=== PATIENT | female | born 1960 | race Caucasian/White ===

== ENCOUNTER 2016-10-03 08:30 | Inpatient (IN) | payer OTHER ==
[2016-10-03] VITALS (15 sets, daily range): BP systolic 104–144; BP diastolic 64–98; PULSE 68–96; RESP 10–20; O2SAT 91–100
[~2016-10-03] VITALS: Ht 154.9 cm; Wt 90.3 kg
[2016-10-03] MEDS: Lactated Ringer's 1,000 ML IV SCH ×3 (05:00→09:30)
[~2016-10-03 08:30] MED LIST: ARIP5TAB20 PO; ARIP5TAB5 PO; BUPR200T34 PO; CeFAZolin Inj 2 GM in Dextrose 5% 50 ML IV ONE; Glycopyrrolate 0.2 MG/ML 1mL Inj ONE; HYDROmorphone 2 mg/mL Inj ONE; LAMO200T PO; LIT450 PO; Neostigmine 1 mg/mL 10 mL Inj ONE; OMEG-38 PO; OMEP20TA24 PO; Ondansetron 2 mg/mL 2 mL Inj ONE; Propofol 10,000 mCg/mL 20 mL Inj ONE; Rocuronium 10 mg/mL 5 mL Inj ONE; THYR65TA4 PO; Vancomycin Inj 1,000 MG in IV Premix 1 EACH IV ONE; fentaNYL-PF 50 mCg/mL 2 mL Inj ONE
--- NOTE | 2016-10-03 08:34 | PCM.HPANE ---
Patient Data Surgeon Admitting Provider: Attending Provider:Hari Jimenez DO Primary Care Physician:Other,Physician Other Provider:Susy Christensen Anesthesia Reason for Visit Right Hip Arthritis Ht/WT & BMI Height (Feet): 5 Height (Inches): 1 Weight (Kilograms): 87.54 Body Mass Index 36.00 Allergies Coded Allergies: No Known Allergies (Verified Allergy, Unknown, 09/28/16) Past Anesthesia History Anesthesia History: Denies:: Anesthesia Reactions Diabetes History Hx Diabetes?: No Medications Reported Medications Omeprazole Magnesium (Prilosec Otc)20 Mg Tablet.dr20 Mg PO DAILY #1 PKG Ref 0 09/29/16 Thyroid,Pork (Nature-Throid)65 Mg Tablet1.5 Tab PO Q2DAY 09/29/16 Thyroid,Pork (Nature-Throid)65 Mg Yncjwe16 Mg PO Q2DAY 09/29/16 [place] Carbonate ([place] Carbonate XR)450 Mg Tablet.er450 Mg PO DAILY 30 Days 09/29/16 Lamotrigine (Lamictal)200 Mg Hilmwp431 Mg PO DAILY #30 TABLET Ref 0 09/29/16 Bupropion HCl (Bupropion HCl ER)200 Mg Tablet.er200 Mg PO DAILY 09/29/16 Aripiprazole 5 Mg Tablet5 Mg PO DAILY 09/29/16 Aripiprazole (Abilify)5 Mg Tablet7.5 Mg PO DAILY Ref 0 09/29/16 Discontinued Reported Medications [place]-3/Dha/Epa/Fish Oil (Fish Oil 1,000 mg Softgel)1 Each Capsule1 Each PO DAILY 09/29/16 History History of ENT Problems?: No HEENT History: Denies:: Abnormal Airway Cataracts Difficult Intubation Dysphagia Glaucoma Hearing Problem Sinus Problem TMJ Denture Type: Partial- Upper Teeth Condition: Within Normal Limits Hx of Heart Problems?: No Cardiovascular History: Denies:: AICD Abdominal Aortic Aneurism Atrial Fibrillation Cardiac Surgery Chest Pain Congestive Heart Failure Coronary Artery Disease Edema Heart Murmur Hypertension Irregular Heartbeat Pacemaker Peripheral Vascular Rheumatic Fever Thrombophlebitis Valvular Heart Disease Hx of Respiratory Problem?: No Respiratory History: Denies:: Asthma COPD Emphysema Use of C-PAP Machine (has used CPAP in past- no longer tolerates) Hx Neurologic Problems?: No Neurological History: Denies:: CVA Multiple Sclerosis Parkinson's Disease Seizures Hx of GI Problems?: Yes Hx of Problems?: No Female Hx: Denies:: Currently Problems with Breasts? Hx Musculoskeletal Problems?: Yes Musculoskeletal History: Positive for:: Degenerative Joint Joint Replacement (left hip) Musculoskeletal Trauma (right hip current admission problem) Osteoarthritis Hx of Psycho/Social Problems?: Yes Psycho Social History: Positive for:: Anxiety Bipolar Disorder Hx Depression Hx Surgeries?: Yes (c section, mi, left total hip) Hx Any Other Health Problems?: Yes Other History: Denies:: Cancer Thyroid Disease Hx Diabetes: No Hx Alcohol Use: YesAlcoholic Drinks Per Day: 1x weeklyHx Substance Use: No Have You Smoked inLast 12 mo: No Stop/Bang S-Snoring: Do You Snore Loudly: Yes T-Tired: feel tired, fatigued: Yes O-Obsered: Observed not breath: No P-Blood Pressure: treated: No B- Body Mass Index > 35 kg/m2: Yes A- Age over 50: Yes N- Neck Large Circumference: No G- Gender Male: No ANGÉLICA Total Score: 4 Risk Assessment Category Category 1A: Patient has history of documented sleep apnea, and HAS NOT received any narcotic, sedative or anesthesia administration during this stay. Category 1B: Patient has history of documented sleep apnea, and HAS received any narcotic , sedative or anesthesia administration during this stay Category 2: Patient has SUSPECTED Obstructive Sleep Apnea, and HAS received any narcotic , sedative or anesthesia administration during this stay. Category 3: Patient has SUSPECTED Obstructive Sleep Apnea and HAS NOT received narcotic, sedative or anesthesia administration during this stay. Category 4: Outpatient in Procedural Areas with known sleep apnea or who screen positive for High Risk via the STOP/BANG questionnaire. Exam Exam General Appearance: Alert, Oriented X3, Cooperative HEENT/AIRWAY: MP 2, Neck Movement (from), Mouth Opening (wnl, upper parital) Lungs: Clear to Auscultation Heart: Exam Unremarkable Plan Impression Patient chart reviewed, patient interviewed and anesthestic plan with risks, benefits, and alternatives discussed, and informed consent obtained. ASA Physical Status: ASA2 Mod Systemic Disease Anesthetic Plan: GA Bene/Risks/Altern/Consents: Yes HP Complete Prior to Induction: Yes Carl Scales MD October 03, 2016 08:34
[2016-10-03] MEDS ORDERED: CeFAZolin Inj 2 gm / 50mL D5W IV ONE (08:57)
[2016-10-03] MEDS ORDERED: Tranexamic Acid 100 mg/mL 10 mL Inj ONE (10:52)
[2016-10-03] MEDS ORDERED: 0.9% Sodium Chloride 100 ML ONE (10:52)
[2016-10-03] MEDS ORDERED: Bupivacaine Liposome 1.3% 20 mL Inj ONE (10:54)
[2016-10-03] MEDS ORDERED: Acetaminophen IV 1,000 MG in IV Premix 1 EACH IV ONE (11:25)
[2016-10-03] MEDS ORDERED: Lactated Ringer's 500 ML IV PRN (11:57)
[2016-10-03] MEDS ORDERED: Lactated Ringer's 1,000 ML IV SCH (11:57)
[2016-10-03] MEDS ORDERED: hydrALAZINE 20 mg/mL Inj IVPUSH PRN (12:00)
[2016-10-03] MEDS ORDERED: Labetalol 5 mg/mL 4 mL Inj IV PRN (12:00)
[2016-10-03] MEDS ORDERED: HYDROmorphone 1 mg/mL Inj IVPUSH PRN (12:00)
[2016-10-03] MEDS ORDERED: fentaNYL-PF 50 mCg/mL 2 mL Inj IVPUSH PRN (12:00)
[2016-10-03] MEDS ORDERED: Atropine 0.4 mg/mL Inj IVPUSH PRN (12:00)
[2016-10-03] MEDS ORDERED: EPHEDrine Sulfate 50 mg/mL Inj IVPUSH PRN (12:00)
[2016-10-03] MEDS ORDERED: Ondansetron 2 mg/mL 2 mL Inj IVPUSH PRN (12:00)
[2016-10-03] MEDS ORDERED: Dexamethasone 4 mg/mL Inj IVPUSH PRN (12:00)
[2016-10-03] MEDS ORDERED: Phenylephrine 10,000 mCg/mL Inj IVPUSH PRN (12:00)
[2016-10-03] MEDS ORDERED: 0.9% Sodium Chloride 10 mL Inj INFILTRATE ONE (12:31)
[2016-10-03] MEDS ORDERED: Bupivacaine Liposome 1.3% 20 mL Inj INFILTRATE ONE (12:31)
[2016-10-03] MEDS ORDERED: Bupivacaine-MPF 0.25%/EPI 30 mL Inj INFILTRATE ONE (12:32)
[2016-10-03] MEDS ORDERED: Lactated Ringer's 1,000 ML IV ONE (13:05)
[2016-10-03] MEDS: 0.9% Sodium Chloride 1,000 ML IV SCH (13:41)
[2016-10-03] MEDS ORDERED: HYDROmorphone 2 mg/mL Inj IVPUSH PRN (13:45)
[2016-10-03] MEDS ORDERED: diphenhydrAMINE 25 mg Capsule PO PRN (13:45)
[2016-10-03] MEDS ORDERED: Magnesium Hydroxide 10 mL Oral Concentration PO PRN (13:45)
[2016-10-03] MEDS ORDERED: Polyethylene Glycol (PEG) 17 Gm Powder PO PRN (13:45)
--- NOTE | 2016-10-03 13:45 | PCM.ANEP1 ---
Post Anesthesia Phase 1 PACU Phase 1 Assessment Vital Signs Vital Signs Date Time Temp Pulse Resp B/P Pulse Ox O2 Delivery O2 Flow Rate FiO2 10/03/16 13:40 90 15 135/73 94 Room Air 10/03/16 13:35 96 20 130/92 95 Room Air 10/03/16 13:30 96 18 129/98 100 Simple Mask 8 10/03/16 13:25 36.5 95 18 144/80 100 Simple Mask 8 10/03/16 09:13 CPAP/BIPAP 10/03/16 09:05 36.3 86 12 117/73 97 Room Air Anesthetic Administered: GA Level of Alertness: Awake, talking ZAPATA's with Equal Strength: Yes Pain: Yes Nausea or Vomiting: No Oxygen Delivery: Simple Mask Lungs: Normal Air Movement Complications: No Follow up Care: No Carl Scales MD October 03, 2016 13:45
--- NOTE | 2016-10-03 14:17 | OP ---
[address] [address] OPERATIVE REPORT PATIENT: ILIR MCCAIN : 1960 MR#: [id number] ADMIT: 10/03/2016 JOB ID: [id number] DATE OF SURGERY: 10/03/2016 PREOPERATIVE DIAGNOSIS(ES): Right hip degenerative joint disease. POSTOPERATIVE DIAGNOSIS(ES): Right hip degenerative joint disease. PROCEDURE: Right total hip arthroplasty. SURGEON: Hari Jimenez DO. MODERATE NEEDS TEACHER: Brenda Brown PA-C INDICATIONS: The patient is a 56-year-old female with right hip severe degenerative arthritis, who has failed conservative measures and wished to proceed with a right total hip arthroplasty. We discussed the risks, benefits, and possible complications of surgery including, but not limited to injury to nerves and vessels, infection, bleeding, incomplete relief of symptoms, stiffness, need for additional procedures, deep venous thrombosis. The patient had good understanding. All questions were answered. She wished to proceed. A orthotic assistant was required for the successful completion of this procedure. PROCEDURE IN DETAIL: The patient was brought to the operating room. She was given general anesthetic and placed comfortably into the lateral decubitus position. The right hip was sterilely prepped and draped. An incision was made centered over the greater trochanter in line with the femur. Dissection was carefully carried to the subcutaneous tissue. Electrocautery was used for hemostasis. A split was made in the iliotibial band and the Charnley retractor was placed. A split was then made in the gluteus medius between the junction of the anterior one-third and posterior two-thirds, and Hohmann retractors were placed on either side of the femoral neck. An anterior sleeve of tissue was then released off of the trochanter leaving a cuff of tissue for repair. The patient was noted to have increased bleeding relative to normal, and judicious use was made of the cautery to help control this. The hip was then dislocated. A provisional neck cut was made at the level of the greater trochanter. The femoral head was then removed and was quite small, measuring only 39 mm in size. The femur was then prepared beginning with a box osteotome and canal seeker. This was sequentially broached up to a size 2, which had excellent fit and fill. She was also noted to have more than normal bleeding in the femoral canal during broaching. A calcar planer was used to smooth the top of the femur and attention was directed towards the acetabulum. Anterior and posterior acetabular retractors were placed and the pulvinar and the superior labrum were removed. The acetabulum was then reamed sequentially up to a 47 for a 48 cup. I felt this was the largest I could safely get as her anterior as well as posterior segal were starting to become thin. We had good bleeding bone and I felt that we had good cup positioning and good reaming. She was noted to have quite a bit of bleeding from her acetabulum bony surfaces. A trial was performed and then a 48 mm Depuy pinnacle cup was impacted in position. Care was taken to ensure the appropriate abduction and anteversion. This was further secured with a single superior dome screw, 30 mm, which had excellent purchase in the bone. We then again trialed and elected to go with a 32, +4 neutral liner, and a 32, + 1.5 head, with the 2 Tri-Lock stem and used a ceramic head. All components were impacted into position. The hip was located, had excellent range of motion, great stability, equal leg lengths. The wound was copiously irrigated and then closed with #5 Ethibond to repair the capsule and to repair the gluteus medius. The remainder of the gluteus medius and vastus lateralis was repaired with #1 Surgilon. The iliotibial band was repaired with #1 Surgilon in a running fashion, as well as 0-Vicryl. The subcu was closed with 2-0 Vicryl as well as two V-Loc and 3-0 V-Loc was used for running subcuticular. A mixture of Exparel and Marcaine and saline was used for local anesthetic at all levels, and sterile dressings were applied. Patient tolerated the procedure well. Blood loss was 500 cc. POSTOPERATIVE PROTOCOL: Have the patient weightbear to tolerance. Use walker for ambulation and aspirin for DVT prophylaxis, which was her preference, and plan to use [place] 7.5/325 for pain.
--- NOTE | 2016-10-03 14:17 | DRSVH ---
PROCEDURE: X-RAY PELVIS W/LAT HIP (RT) ([id number]) INDICATIONS: post op TECHNIQUE: AP pelvis and lateral view of the right hip acquired. COMPARISON: [facility], , XR PELVIS W BILAT LAT HIPS 3VW, 01/27/2016, 7:41. FINDINGS: Bones: Patient is status post bilateral hip arthroplasties, with hardware components in expected pos itions. Left hip arthroplasty is stable compared to prior examination. Right hip arthroplasty is in p lace interval since the prior examination. The hip joints appear congruent. The visualized bony stru ctures appear intact. Soft tissues: Overlying postoperative changes are noted. No suspicious soft tissue densities. IMPRESSION: Status post bilateral hip arthroplasties. Dictated by: Criss Hernandez MD, PhD on 10/03/2016 at 14:14 Approved by: Criss Hernandez MD, PhD on 10/03/2016 at 14:15
[2016-10-03] MEDS: Sodium Chloride LOK Flush 10 mL Syringe IV SCH (16:30)
[2016-10-03] MEDS: CeFAZolin Inj 2 GM in IV Premix 1 EACH IV SCH (17:48)
--- NOTE | 2016-10-03 19:28 | NUR ---
Arrival to Floor Patient arrived to floor from PACU at 1430. Ordered IV fluids hung, patient on 2L O2. Patient alert and oriented, surgical dressing CDI, CMS intact, with pedal pulse, brisk capillary refill, sensation to lower extremity and good movement of lower extremity. SCDs in place, patient placed on pulse oximeter. Patient tolerating liquids well, diet advanced. Wedge in place, care is ongoing.
[2016-10-03] MEDS: Senna-Docusate 8.6-50 mg Tablet PO SCH (20:49)
--- NOTE | 2016-10-03 20:57 | NUR ---
O2 sat P: O2 sat dropping to 85% with out supplemental oxygen I: Raised HOB to 45 degrees and put the NC on at 2L E:O2 sat increased to 97% S:bed locked in low position call light in reach, non skid socks on, patient will call for assistance when needed
[2016-10-03] MEDS: HYDROcodone-APAP 7.5-325 mg Tablet PO PRN (21:50)
[2016-10-04] VITALS: BP 99/62; PULSE 81; RESP 20; O2SAT 98
[2016-10-04] MEDS: Sodium Chloride LOK Flush 10 mL Syringe IV SCH ×3 (00:30→15:43)
[2016-10-04] MEDS: 0.9% Sodium Chloride 1,000 ML IV SCH ×3 (01:15→19:41)
[2016-10-04] MEDS: CeFAZolin Inj 2 GM in IV Premix 1 EACH IV SCH (02:00)
[2016-10-04] MEDS: hydrOXYzine Pamoate 25 mg Capsule PO PRN ×2 (02:09→06:04)
[2016-10-04] MEDS: HYDROcodone-APAP 7.5-325 mg Tablet PO PRN ×6 (02:10→20:27)
--- NOTE | 2016-10-04 03:16 | NUR ---
Pain As patient's activity increased, Patient's pain level did as well. Up to bedside commode w/FWW to void twice so far this shift. One person assist. Tolerated activity well. Patient tolerating food well, with no nausea. A&Ox3. Vitals stable. Patient's pain managed with one Oxycodone q4.
[2016-10-04 04:51] VITALS: BP 122/83; PULSE 89; RESP 20; O2SAT 98
[2016-10-04] MEDS: Pantoprazole 20 mg ER24 Tablet PO SCH (06:04)
[2016-10-04 07:44] LABS: BASOPHILS % (AUTO) 0.1 % (0-3); EOSINOPHILS % (AUTO) 0 % (0-5); MONOCYTES % (AUTO) 7.2 % (4-12); Mean Corpuscular Hemoglobin 26.3 pg (27.0-35.0); Mean Corpuscular Volume 84.3 fL (81-100); NEUTROPHILS % (AUTO) 79.8 % (40-74); Platelet Count 146 bil/L (150-400)
[2016-10-04] MEDS: lamoTRIgine 100 mg Tablet PO SCH (08:04)
[2016-10-04] MEDS: buPROPion SR 100 mg ER12 Tablet PO SCH (08:04)
[2016-10-04] MEDS: Senna-Docusate 8.6-50 mg Tablet PO SCH ×2 (08:07→20:27)
--- NOTE | 2016-10-04 08:24 | PCM.PNORTH ---
Subjective Date of Service: October 04, 2016 Visit Information: Reason for Visit Right Hip Arthritis Surgery/Surgery Date RIGHT TOTAL HIP 10/03/16 Post-Op Day # 1 Date of Admission: October 03, 2016 at 14:46 Hospital Day # Subjective Complains of incisional pain with movement of the leg. At rest she is not having much pain. Postop General: No Shortness of Breath, No Chest Pain Pain Management: PO, IV Push Objective Exam Objective Patient is seen sitting up in bed with family at bedside. Vital Signs and I/O Vital Sign - Last Date Time Temp Pulse Resp B/P Pulse Ox O2 Delivery O2 Flow Rate FiO2 10/04/16 04:51 37.1 89 20 122/83 98 Nasal Cannula 2.00 Intake and Output 10/03/16 10/03/16 10/04/16 Cumulative From/Thru 15:00 23:00 07:00 09/29/16 10:54 - 10/04/16 06:42 Intake Total 1995 ml 1840 ml 2286 ml 6121 ml Output Total 500 ml 0 ml 1050 ml 1550 ml Balance 1495 ml 1840 ml 1236 ml 4571 ml Intake Oral 1840 ml 720 ml 2560 ml IV Total 1995 ml 1566 ml 3561 ml Output Urine Total 0 ml 1050 ml 1050 ml Estimated Blood Loss 500 ml 500 ml # Bowel Movements 0 0 0 Lab & Micro Results Laboratory Tests Test 10/03/16 17:39 10/04/16 06:40 Hemoglobin 10.7g/dL (12.0-15.6) 8.9g/dL (12.0-15.6) Hematocrit 34.5% (35.0-46.0) 28.5% (35.0-46.0) White Blood Count 8.7th/mm3 (3.8-10.1) Red Blood Count 3.38mil/mm3 (3.90-5.20) Mean Corpuscular Volume 84.3fL (81-100) Mean Corpuscular Hemoglobin 26.3pg (27.0-35.0) Mean Corpuscular Hemoglobin Concent 31.2% (32.0-37.0) Red Cell Distribution Width 14.7% (12.3-15.4) Platelet Count 146bil/L (150-400) Neutrophils (%) (Auto) 79.8% (40-74) Lymphocytes (%) (Auto) 12.7% (14-46) Monocytes (%) (Auto) 7.2% (4-12) Eosinophils (%) (Auto) 0% (0-5) Basophils (%) (Auto) 0.1% (0-3) Sodium Level 142mEq/L (134-144) Potassium Level 4.5mEq/L (3.5-5.2) Chloride Level 109mEq/L (97-108) Carbon Dioxide Level 22mmol/L (18-29) Blood Urea Nitrogen 11mg/dL (6-24) Creatinine 0.93mg/dL (0.57-1.00) Estimat Glomerular Filtration Rate 90mL/min (>59) Glucose Level 120mg/dL (60-99) Calcium Level 8.8mg/dL (8.5-10.1) Result Diagram: 10/04/1663910/04/16639 General Appearance: Alert, Oriented X3, Cooperative, No Acute Distress Extremities: Distal Pulses Palpable, No Compartment Syndrom Noted, Thigh & Calf Soft/Nontender Postop Sensory Motor: Distal Motor Intact, NVI Distally SURGICAL WOUND : Wound Location/Description Right hip: Dressing is clean, dry and intact. Activity: Activity per PT, Ambulate with PT Catheters: None Assessment & Plan Impression 1. POD #1 status post right total hip arthroplasty 2. Postoperative anemia - as expected, asymptomatic Problems: Plan Weightbearing: Weightbearing as tolerated with walker DVT prophylaxis: aspirin 325 mg twice a day 6 weeks Physical therapy for transfers, progressive ambulation, therapeutic exercise Hip precaution positions to prevent dislocation: No flexing forward past 90, no crossing the legs at the knee, no active abduction for 6 weeks after surgery Wound care: PA will change dressing on postop day 2 Discharge plan: Discharge home in 1-2 days. Follow-up plan: In 2 weeks at [facility] with PA for wound check and at [address] Jimenez with x-rays Pain Management: Toradol, [place] 7.5 mg, Vistaril VTE Prophylaxis: SCDs, Other (aspirin 325 mg BID) Resuscitation Status: CPR: Attempt Resuscitation BrundageBrenda Aggarwal PA-C October 04, 2016 08:24
[2016-10-04 10:58] VITALS: BP 106/68; PULSE 84; RESP 19; O2SAT 96
--- NOTE | 2016-10-04 15:15 | NUR ---
Evaluation completed. Please go to "Notes" then click on "Assessments and Notes" (bottom left corner of screen). Then select appropriate discipline tab on top of screen.
--- NOTE | 2016-10-04 16:24 | NUR ---
Social Work: Screening D: EMR reviewed. Pt is a 56 y/o female admitted for right hip arthritis per H&P. SW met with pt at [facility] to conduct initial assessment. Pt was alert and oriented x3. Pt's insurance is [employer] and PCP is Jeb Franks MD. Pt has no LTC or VA insurance. Pt has no HH or SNF history. Pt lives at home with mother and daughter in [place]. Pt will be homebound for 6-weeks following surgery. Pt uses a walker and cane at baseline. Pt drives at baseline but will not be able to drive for 6-weeks. Pt's mother was concerned about transportation and care after leaving hospital (especially getting to outpatient PT appointments). SW provided choicelist and suggested HH options for PT. Pt is requesting PT for rehabilitation. SW will continue to follow to R/O for PT. A: Pt who would benefit from HH PT or outpatient PT. P: Pt will be transported home my mother via POV. Pt would like HH PT for rehabilitation. SW to follow up with pt regarding HH. EMANUEL Can
--- NOTE | 2016-10-04 16:36 | NUR ---
pain pt had severe pain this am when she first woke up, gave Toradol and [place] 7.5mg (2) She was able to move after that and sat up in chair for most of the day
[2016-10-04 17:15] VITALS: BP 102/67; PULSE 98; RESP 16; O2SAT 99
[2016-10-04 19:53] VITALS: BP 93/62; PULSE 98; RESP 20; O2SAT 93
[2016-10-05] MEDS: HYDROcodone-APAP 7.5-325 mg Tablet PO PRN ×6 (02:35→22:15)
[2016-10-05] MEDS: Sodium Chloride LOK Flush 10 mL Syringe IV SCH ×3 (02:36→17:07)
--- NOTE | 2016-10-05 04:42 | NUR ---
Pain/activity pt has reported little to know pain while laying in bed. however she asks that she be given the [place] 7/325 q4h so she can stay on top of the pain and be able to get out of bed easier. before bed pt was able to take a short walk out into the hallway to the nurses station then back to her room, she then sat up in the chair for a couple of hours. she tolerated the activity well and had a even steady gait with the FWW. care continues.
[2016-10-05 04:49] VITALS: BP 96/60; PULSE 85; RESP 20; O2SAT 97
[2016-10-05 05:22] LABS: BASOPHILS % (AUTO) 0 % (0-3); EOSINOPHILS % (AUTO) 0.1 % (0-5); MONOCYTES % (AUTO) 6.1 % (4-12); Mean Corpuscular Hemoglobin 26.7 pg (27.0-35.0); Mean Corpuscular Volume 85.4 fL (81-100); NEUTROPHILS % (AUTO) 80.1 % (40-74); Platelet Count 129 bil/L (150-400)
[2016-10-05] MEDS: 0.9% Sodium Chloride 1,000 ML IV SCH ×2 (05:41→15:41)
[2016-10-05] MEDS: Pantoprazole 20 mg ER24 Tablet PO SCH (06:32)
[2016-10-05] MEDS: Senna-Docusate 8.6-50 mg Tablet PO SCH ×2 (09:06→22:14)
[2016-10-05] MEDS: buPROPion SR 100 mg ER12 Tablet PO SCH (09:09)
[2016-10-05] MEDS: lamoTRIgine 100 mg Tablet PO SCH (09:09)
[2016-10-05] MEDS: hydrOXYzine Pamoate 25 mg Capsule PO PRN ×3 (10:26→18:33)
--- NOTE | 2016-10-05 12:06 | NUR ---
Social Work: Readiness for Discharge D: EMR reviewed. Pt is on day 2 of hospitalization for right hip arthritis per H&P. MORALES met with pt and mother at [facility] to discuss discharge plan, . Pt resides in [place]. MORALES spoke with [facility] who does not service [place]. [facility] is the only company that services [place], [place]. MORALES spoke with [facility] who confirms that they service [place], [place]. SW made referral to [facility], faxed necessary clinicals. [facility] states that they will not be able to open pt with PT until the end of next week (October 11- range). MORALES spoke with pt regarding this, pt is agreeable to and is aware of limitations but was hopeful that she would be back at work next week. PT continues to recommend PT, though pt increased ambulation distance to 100 feet today in therapy and may continue to progress. MORALES will continue to follow for HH needs prior to discharge. MORALES will continue to update [facility] regarding pt's discharge plan. A: Pt who would benefit from HHPT or outpatient PT. P: Referral made to [facility] who would be able to begin services in approximately 1 week from today (est. October 11-). MORALES will continue to follow for HHPT needs and coordination of this. Pt will be transported home my mother via POV. EMANUEL Khan
--- NOTE | 2016-10-05 12:15 | NUR ---
Scripts Scripts given to family member to fill for patient use when discharged.
[2016-10-05 13:11] VITALS: BP 117/72; PULSE 103; RESP 18; O2SAT 95
--- NOTE | 2016-10-05 14:00 | PCM.PNORTH ---
Subjective Date of Service: October 05, 2016 Visit Information: Reason for Visit Right Hip Arthritis Surgery/Surgery Date RIGHT TOTAL HIP 10/03/16 Post-Op Day # 2 Date of Admission: October 03, 2016 at 14:46 Hospital Day # Subjective Patient is making good progress with physical therapy. She states this morning she had a little dizziness at the end of her walk but overall she feels that she is doing quite well. Postop General: No Shortness of Breath, No Chest Pain, Good Appetite Pain Management: PO, IV Push Objective Exam Objective Patient is seen sitting up in bed Vital Signs and I/O Vital Sign - Last Date Time Temp Pulse Resp B/P Pulse Ox O2 Delivery O2 Flow Rate FiO2 10/05/16 13:11 36.8 103 18 117/72 95 Nasal Cannula 2.00 Intake and Output 10/04/16 10/04/16 10/05/16 Cumulative From/Thru 15:00 23:00 07:00 09/29/16 10:54 - 10/05/16 06:21 Intake Total 700 ml 6821 ml Output Total 1200 ml 2750 ml Balance -500 ml 4071 ml Intake Oral 700 ml 3260 ml IV Total 3561 ml Output Urine Total 1200 ml 2250 ml Estimated Blood Loss 500 ml # Bowel Movements 0 0 Lab & Micro Results Laboratory Tests Test 10/05/16 05:00 White Blood Count 8.4th/mm3 (3.8-10.1) Red Blood Count 2.81mil/mm3 (3.90-5.20) Hemoglobin 7.5g/dL (12.0-15.6) Hematocrit 24.0% (35.0-46.0) Mean Corpuscular Volume 85.4fL (81-100) Mean Corpuscular Hemoglobin 26.7pg (27.0-35.0) Mean Corpuscular Hemoglobin Concent 31.3% (32.0-37.0) Red Cell Distribution Width 14.7% (12.3-15.4) Platelet Count 129bil/L (150-400) Neutrophils (%) (Auto) 80.1% (40-74) Lymphocytes (%) (Auto) 13.6% (14-46) Monocytes (%) (Auto) 6.1% (4-12) Eosinophils (%) (Auto) 0.1% (0-5) Basophils (%) (Auto) 0% (0-3) Sodium Level 141mEq/L (134-144) Potassium Level 4.5mEq/L (3.5-5.2) Chloride Level 108mEq/L (97-108) Carbon Dioxide Level 23mmol/L (18-29) Blood Urea Nitrogen 12mg/dL (6-24) Creatinine 0.88mg/dL (0.57-1.00) Estimat Glomerular Filtration Rate 96mL/min (>59) Glucose Level 162mg/dL (60-99) Calcium Level 8.4mg/dL (8.5-10.1) Result Diagram: 10/05/16 0500 10/05/16 0500 General Appearance: Alert, Oriented X3, Cooperative, No Acute Distress Extremities: Distal Pulses Palpable, No Compartment Syndrom Noted, Thigh & Calf Soft/Nontender Postop Sensory Motor: Distal Motor Intact, NVI Distally SURGICAL WOUND : Wound Location/Description Right hip: There is mild ecchymosis at the surgical site. There is mild swelling present. There is no erythema or acute drainage. There is very minimal serous drainage on the bandage.. Incision General Appearance: Steri Strips Dressing & Drainage Status: Intact, Changed Activity: Activity per PT, Ambulate with PT Catheters: None Assessment & Plan Impression 1. POD-2 Status post right total hip arthroplasty 2. Post operative anemia as expected Problems: Plan Weightbearing: Weightbearing as tolerated with walker DVT prophylaxis: aspirin 325 mg twice a day 6 weeks Physical therapy for transfers, progressive ambulation, therapeutic exercise Hip precaution positions to prevent dislocation: No flexing forward past 90, no crossing the legs at the knee, no active abduction for 6 weeks after surgery Wound care: dressing changed by PA today to [place] dressing Post operative anemia - will continue to monitor. Check H&H in am10/06/16 HR is up a little Discharge plan: Discharge home tomorrow Follow-up plan: In [address] [facility] with PA for wound check and at [address] Jimenez with x-rays Pain Management: serena Sams VTE Prophylaxis: SCDs, JAZMÍN Hose, Other (aspirin 325 mg BID) Resuscitation Status: CPR: Attempt Resuscitation Brenda Brown PA-C October 05, 2016 14:00
[2016-10-05 19:46] VITALS: BP 111/74; PULSE 101; RESP 20; O2SAT 93
[2016-10-06] MEDS: Sodium Chloride LOK Flush 10 mL Syringe IV SCH ×4 (00:30→22:55)
[2016-10-06] MEDS: 0.9% Sodium Chloride 1,000 ML IV SCH ×3 (01:41→22:47)
[2016-10-06] MEDS: HYDROcodone-APAP 7.5-325 mg Tablet PO PRN ×3 (02:37→10:55)
[2016-10-06] MEDS: Pantoprazole 20 mg ER24 Tablet PO SCH (04:40)
[2016-10-06 05:01] VITALS: BP 123/74; PULSE 109; RESP 20; O2SAT 95
[2016-10-06] MEDS: hydrOXYzine Pamoate 25 mg Capsule PO PRN (08:15)
--- NOTE | 2016-10-06 08:40 | PCM.DIORTH ---
Ortho Discharge Instruction Date of Service: October 06, 2016 Dates of Hospitalization Date of Hospital Admission October 03, 2016 at 14:46 Providers Admitting Physician: Hari Jimenez DO Primary Care Physician: Other,Physician Attending Physician: Hari Jimenez DO Diet Discharge Diet: No restrictions Activity Discharge Activity-General: Balance rest and activity, Elevate & ice extremity Right Lower Extremity: Weight Bearing as tolerated Range of motion restrictions: Hip precaution positions to prevent dislocation: No flexing forward past 90, no crossing the legs at the knee, no active abduction for 6 weeks after surgery Discharge Assist Device: Front Wheeled Walker Dressing and Incisional Care Discharge Dressing Care: Keep dressing clean, dry & intact Dressing Instructions: we will remove Steri-Strips at first postop visit in 2 weeks Discharge Hygiene: May shower (see instructions below) Additional Instructions Discharge Instructions Weightbearing: Weightbearing as tolerated with walker DVT prophylaxis: aspirin 325 mg twice a day 6 weeks Hip precaution positions to prevent dislocation: No flexing forward past 90, no crossing the legs at the knee, no active abduction for 6 weeks after surgery The patient may shower on Sunday if the wound has no drainage present. Wound may be uncovered to shower. Let soap and water run over the wound, pat dry and apply a new dressing. Wound care: change Island dressing every 2-3 days or sooner if needed Every area that you are awake, get up and move about. Perform the exercises that you have learned from therapy or do walking in the house. Increase your walking a little more each day. Use MiraLax daily for constipation (powder dissolved in glass of water). It is available at the drug store or supermarket. Drinks lots of fluids. Eat high fiber foods. Follow Up Plan Follow Up Plan Follow-up plan: In 2 weeks at [facility] with WILY for wound check and at [address] Jimenez with x-rays Call your provider for: Fever, Chills, Shortness of breath, Vomitting, Drainage at incision, Wound redness Brenda Brown PA-C October 06, 2016 08:40
--- NOTE | 2016-10-06 08:43 | PCM.PNORTH ---
Subjective Date of Service: October 06, 2016 Visit Information: Reason for Visit Right Hip Arthritis Surgery/Surgery Date RIGHT TOTAL HIP 10/03/16 Post-Op Day # 3 Date of Admission: October 03, 2016 at 14:46 Hospital Day # Subjective Patient did very well with physical therapy yesterday was able to walk 400 feet and do stairs. Last night her bed mattress became unplugged and lost all of the air. She was very frustrated that mattress did not get fixed for 3 hours. This morning she complains of nausea and constipation. She is passing a little gas but has not yet had a bowel movement. Postop General: No Shortness of Breath, No Chest Pain, Good Appetite Pain Management: PO, IV Push Objective Exam Vital Signs and I/O Vital Sign - Last Date Time Temp Pulse Resp B/P Pulse Ox O2 Delivery O2 Flow Rate FiO2 10/06/16 05:01 36.6 109 20 123/74 95 Nasal Cannula 2.00 Intake and Output 10/05/16 10/05/16 10/06/16 Cumulative From/Thru 15:00 23:00 07:00 09/29/16 10:54 - 10/06/16 06:27 Intake Total 1800 ml 600 ml 9221 ml Output Total 1100 ml 1200 ml 5050 ml Balance 700 ml -600 ml 4171 ml Intake Oral 1800 ml 600 ml 5660 ml IV Total 3561 ml Output Urine Total 1100 ml 1200 ml 4550 ml Estimated Blood Loss 500 ml # Bowel Movements 0 0 Lab & Micro Results Laboratory Tests Test 10/06/16 05:05 Hemoglobin 8.0g/dL (12.0-15.6) Hematocrit 25.1% (35.0-46.0) Result Diagram: 10/06/16 0505 10/05/16 0500 General Appearance: Alert, Oriented X3, Cooperative, No Acute Distress Gastrointestinal: Complain of Nausea Extremities: Distal Pulses Palpable, No Compartment Syndrom Noted, Thigh & Calf Soft/Nontender Postop Sensory Motor: Distal Motor Intact, NVI Distally SURGICAL WOUND : Dressing & Drainage Status: Intact (clean and dry) Activity: Activity per PT, Ambulate with PT Catheters: None Assessment & Plan Impression 1. POD #3 right total hip arthroplasty 2. Postoperative anemia - improving Problems: Plan Patient given Zofran now for the nausea, which improved symptoms Weightbearing: Weightbearing as tolerated with walker DVT prophylaxis: aspirin 325 mg twice a day 6 weeks Physical therapy for transfers, progressive ambulation, therapeutic exercise. Patient is performing very well with therapy Hip precaution positions to prevent dislocation: No flexing forward past 90, no crossing the legs at the knee, no active abduction for 6 weeks after surgery The patient may shower on Sunday if the wound has no drainage present. Wound may be uncovered to shower. Let soap and water run over the wound, pat dry and apply a new dressing. Wound care: change Island dressing every 2-3 days of sooner if needed Post operative anemia - improving Discharge plan: Discharge home today if nausea resolves. Follow-up plan: In 2 weeks at [facility] with WILY for wound check and at [address] Jimenez with x-rays Pain Management: [place], Toradol, Vistaril VTE Prophylaxis: SCDs, JAZMÍN Martini, Other (aspirin 325 mg BID) Resuscitation Status: CPR: Attempt Resuscitation Brenda Brown PA-C October 06, 2016 08:43
[2016-10-06] MEDS: Ondansetron 2 mg/mL 2 mL Inj IVPUSH PRN (09:38)
[2016-10-06] MEDS: buPROPion SR 100 mg ER12 Tablet PO SCH (10:39)
[2016-10-06] MEDS: Senna-Docusate 8.6-50 mg Tablet PO SCH ×2 (10:40→21:11)
[2016-10-06] MEDS: lamoTRIgine 100 mg Tablet PO SCH (10:41)
[2016-10-06] MEDS ORDERED: Aspirin-Expunged Drug, Do Not Renew! PO (11:53)
[2016-10-06] MEDS ORDERED: HYDR-3797 PO (11:53)
[2016-10-06] MEDS ORDERED: Hydrocodone/Acetaminophen PO (11:53)
[2016-10-06] MEDS ORDERED: ONDA4TAB9 PO (11:53)
--- NOTE | 2016-10-06 11:57 | PCM.DC.ORT ---
Discharge Summary Date of Service: October 08, 2016 Date of Hospital Admission: October 03, 2016 at 14:46 Date of Surgery: October 03, 2016 Date of Discharge: October 08, 2016 Reason for Hospitalization: 1. Right hip arthritis Procedures Performed: Right total hip arthroplasty Hospital Course: The patient was admitted to the hospital on 10/03/2016 and underwent the above procedure. Antibiotic prophylaxis consisting of Ancef and vancomycin. The surgeon was Dr. Jimenez. Patient tolerated the procedure well and was transferred to recovery room in stable condition. Patient had physical therapy to work on ambulation and transfers. Weight bearing as tolerated with walker. Pain was managed with Dilaudid, [place] 7.5 mg, Vistaril, Toradol. DVT prophylaxis: Aspirin 325 mg twice a day. Patient developed postoperative anemia on postop day 2 with H&H down to 7.5/24.0. On postop day 3 it increased to 8.0/25.1. The patient was doing well with therapy and walked 400 feet as well as stairs. She had nausea and constipation on postop day 3. She had an episode of foul smelling vomiting and the hospitalist service was consulted. Abdominal xray did not reveal a small bowel obstruction. Patient was administered Zofran for nausea. She was given a suppository for the constipation. Later that night she had a bowel movement. On postop day 4 nausea and vomiting had resolved. Narcotics were discontinued. Analgesia was changed to tramadol and Tylenol. Her H&H dropped to 7.0/23.2 and patient was transfused 1 unit of PRBC's. On POD #5 H/H was 8.9/27.7. Patient felt much better. Nausea and constipation were resolved. Dressing was changed. Patient was discharged home on POD-5. Follow-up : at [facility] 2 weeks postop for wound check and at [address] Jimenez with x-ray. Diagnosis at Time of Discharge 1. Status post right total hip arthroplasty 2. Postoperative nausea and vomiting - resolved 3. Opioid-induced constipation - resolved 4. Postoperative anemia - resolved Problems: Disposition: Discharged home in stable condition Discharge Instructions: Weightbearing: Weightbearing as tolerated with walker DVT prophylaxis: aspirin 325 mg twice a day 6 weeks Hip precaution positions to prevent dislocation: No flexing forward past 90, no crossing the legs at the knee, no active abduction for 6 weeks after surgery The patient may shower tomorrow if the wound has no drainage present x 24 hours. Wound may be uncovered to shower. Let soap and water run over the wound, pat dry and apply a new dressing. Wound care: change Island dressing every 2-3 days or sooner if needed Every day that you are awake, get up and move about. Perform the exercises that you have learned from therapy or do walking in the house. Increase your walking a little more each day. Use MiraLax daily for constipation (powder dissolved in glass of water). It is available at the drug store or supermarket. Drinks lots of fluids. Eat high fiber foods. Avoid narcotic pain medications. You may take tramadol and acetaminophen for pain. It is OK to take together. Maximum acetaminophen is 4,000 mg per day ([Hydrocodone/Acetaminophen]) 1 TABLET TABLET 1-2 TABLET PO Q4H PRN PRN For Moderate Pain ([Aspirin-Expunged Drug, Do Not Renew!]) 325 MG TABLET 325 MG PO BID Aripiprazole (Abilify) 5 Mg Tablet 7.5 MG PO DAILY Aripiprazole (Aripiprazole) 5 Mg Tablet 5 MG PO DAILY Bupropion HCl (Bupropion HCl ER) 200 Mg Tablet.er 200 MG PO DAILY Hydroxyzine Pamoate (HydrOXYzine Pamoate) 25 Mg Capsule 25 MG PO Q6H PRN PRN For Spasm and/or Restlessness Lamotrigine (Lamictal) 200 Mg Tablet 200 MG PO DAILY [place] Carbonate ([place] Carbonate XR) 450 Mg Tablet.er 450 MG PO DAILY Omeprazole Magnesium (Prilosec Otc) 20 Mg Tablet.dr 20 MG PO DAILY Ondansetron ODT (Zofran ODT) 4 Mg Tablet 4 MG PO Q6H PRN PRN For Nausea Thyroid,Pork (Nature-Throid) 65 Mg Tablet 65 MG PO Q2DAY Thyroid,Pork (Nature-Throid) 65 Mg Tablet 1.5 TAB PO Q2DAY Tramadol (Ultram) 50 Mg Tablet 50 MG PO Q6H PRN PRN For Mild Pain Brenda Brown PA-C October 06, 2016 11:57
[2016-10-06 14:22] VITALS: BP 121/73; PULSE 90; RESP 20; O2SAT 95
--- NOTE | 2016-10-06 14:33 | NUR ---
Social Work- Readiness for Discharge Data: EMR reviewed. Pt is on day 3 of hospitalization for right hip arthritis. Pt is not medically ready for discharge, anticipate tomorrow. SW spoke with pt regarding HH and progresion with PT. Pt is concerned about ambulating at home, despite her ambulating 300 feet with PT. SW spoke with [facility] regarding pt's discharge, informed SW that they will be calling pt on Sunday morning to schedule the first visit. [facility] is not available over the weekend, requested SW fax patients discharge orders, summary, and F2F to [phone] when the pt discharges. SW to update pt. Pt to discharge home with [facility] PT, F2F signed and in folder. SW to fax orders and F2F at discharge. SW will continue to follow. Assessment: Pt who would benefit from [facility]. Plan: Pt to discharge home with [facility] PT, F2F signed and in folder. SW to fax orders and F2F at discharge. SW will continue to follow. EMANUEL Khan
--- NOTE | 2016-10-06 20:03 | NUR ---
Nausea Pt complaining of nausea this am, treated with Vistaril, no improvement. treated with IV Zofran. pt stated a little better. Nausea progressively getting worse this shift. encouraged walking to help have BM. walked several loops in [place] this shift. continued to treat with IV Zofran. slowed down on Oral pain medication. Pt started having emesis this evening. notified MD, hospitalist involved for passable bowel obstruction. care continued
[2016-10-06 20:16] VITALS: BP 105/68; PULSE 94; RESP 20; O2SAT 95
--- NOTE | 2016-10-06 20:17 | DRSVH ---
PROCEDURE: X-RAY ABDOMEN, ONE VIEW ([id number]) INDICATIONS: nausea, vomiting TECHNIQUE: One view of the abdomen acquired. COMPARISON: None. FINDINGS: Surgical changes and devices: Bilateral hip arthroplasty. Cholecystectomy clips. Bowel: Bowel gas pattern is normal. Soft tissues: No suspicious abdominal calcifications. Visualized solid organ contours appear normal in size. Bones: No suspicious bony lesions. IMPRESSION: No acute process. Dictated by: Reanna Rae M.D. on 10/06/2016 at 20:16 Approved by: Reanna Rae M.D. on 10/06/2016 at 20:16
--- NOTE | 2016-10-06 20:43 | PCM.CHPMED ---
Subjective Date of Service: October 06, 2016 Primary Physician: Admitting Physician: Hari Jimenez DO Primary Care Physician: Other,Physician Attending Physician: Hari Jimenez DO Chief Complaint: Chief Complaint: Nausea vomiting and constipation History of Present Illness: Internal Medicine consultation requested by Dr. Jimenez. Brigitte Nunez is a 56 year old woman with a PMH of anxiety, depression, GERD, Bipolar, hypothyroid, and severe degenerative arthritis of the right hip s/p uncomplicated total hip arthroplasty on 10/03/16. The patient relates that earlier today she began to feel acutely nauseous and eventually threw up a large volume of brackish fluid. She reports that she has not had a BM since the day prior to her surgery, but that she has been passing flatus regularly post operatively. She has had very little appetite since her surgery. The patient has had a high requirement for post operative opiate analgesia to control her pain. She states that having vomited and then slept she is feeling slightly better at the time of evaluation. The patient has a history of cholecystectomy and C section. She denies ongoing crampy abdominal pain, chest pain, GERD, SOB, or dysuria. A/P film of the abdomen is negative for any acute intra-abdominal process such as SBO. Review of Systems: Constitutional: Denies: Chills, Fever, Malaise, Other, Sweats, Weakness Eyes: Denies: Blurred Vision, Conjunctive Inflammation, Double Vision, Eyelid Inflammation, Other, Pain, Redness, Vision Changes ENT: Denies: Dental Problems, Dysphagia, Ear Discharge, Ear Pain, Hoarseness, Membranes Dry, Nasal Congestion, Nose Discharge, Nose Pain, Other, Throat Pain, Tinnitus, Ulcers/Sores in Mouth Neck: Denies: Mass, Other, Pain, Swelling Cardiovascular: Denies: Chest Pain, Edema, Irregular Heart Rate, Other, Palpitations, Rapid Heart Rate, SOB on Exertion, SOB while laying flat Respiratory: Denies: Cough, Cough with bloody sputum, Other, SOB with Exertion , Shortness of Breath, Snoring, Sputum, Wake up Gasping for Breath, Wake up SOB , Wheezing Gastrointestinal: Reports: Constipation, Nausea, Vomiting Genitourinary: Denies: Change in Frequency, Decrease Urinary Output, Decrease Urinary Stream, Dysuria, Has burning or pain with urination, Hematuria, Hemodialysis, Incontinence, No burning or pain with urination, Nocturia, Other, Peritoneal Dialysis Reproductive Female: Denies: /Para, Last Menstrual Cycle, Other, Sexually Active, Use of Contraceptive, Venereal Disease Musculoskeletal: Reports: Back Pain, Other (Hip pain) Skin: Denies: Blisters, Bruising, Dry or Flakiness, Itching, Lesions, Other, Rash, Redness, Ulcers Neurological: Denies: Change in LOC, Change in Speech, Confusion, Difficulty Walking, Dizziness, Double Vision, Drooping Mouth, Incoordination, Localized Weakness, Numbness, Other, Seizures, Somnolence, Tremors, Vertigo Psychologic: Reports: Anxiety, Denies: Agitation, Depression, Insomnia, Other, PTSD-Post Traumatic Stress Disorder, Suicidal Thoughts Endocrine: Denies: Abnormal Hair Growth, Blood Glucose Review, Diaphoresis, Excessive Thirst, Intolerant to Cold, Intolerant to Heat, Other, Recent A1C, Urinating Frequently, Weight Gain Hematologic: Denies: Abnormal Bleeding, Bruising, Other Lymphatic: Denies: Adenopathy, Swollen Lymph Node Above Collarbone, Swollen Lymph Nodes in Neck, Tender Lymph Nodes [place]ill[place], Tender Lymph Nodes Groin PMH Past Medical History Anxiety Depression GERD Bipolar Severe degenerative arthritis of the right hip Surgical History s/p right hip total arthroplasty 10/03/16 C section 2000 Cholecystectomy 2014 Home Medications Brigitte Nunez [id number] 1960 09/18/2016 09:15 AM Page: 06/08 Abilify 5 mg tablet take 1 tablet by oral route every day 7.5 MG IN THE AM aripiprazole 5 mg tablet take 1 tablet by oral route every day bupropion HCl SR 100 mg tablet,sustained-release take 2 tablet by oral route every day bupropion HCl SR 100 mg tablet,sustained-release take 1 tablet by oral route 2 times every day Fish Oil 1,000 mg capsule take two pills po every day Lamictal 200 mg tablet take 1 tablet by oral route every day lithium carbonate ER 450 mg tablet,extended release take 1 tablet by oral route 2 times every day lithium carbonate ER 450 mg tablet,extended release take 1 tablet by oral route every day Nature-Throid 65 mg tablet take 1 tablet by oral route every day Prilosec take 1 capsule by oral route every day 30 minutes to 1 hour before a meal Probiotic (S.boulardii) 250 mg capsule take two bill po every dya vitamin B complex tablet Vitamin D3 5,000 unit tablet take one pill po every day Allergies: Coded Allergies: No Known Allergies (Verified Allergy, Unknown, 09/28/16) Family History Family History Father of lung cancer age 68 Social History Hx Alcohol Use: YesAlcoholic Drinks Per Day: 1x weeklyHx Substance Use: No Exam Vital Signs Vital Sign - Last Date Time Temp Pulse Resp B/P Pulse Ox O2 Delivery O2 Flow Rate FiO2 10/06/16 20:16 37.2 94 20 105/68 95 Nasal Cannula 2.00 Intake and Output 10/05/16 10/05/16 10/06/16 Cumulative From/Thru 15:00 23:00 07:00 09/29/16 10:54 - 10/06/16 06:27 Intake Total 1800 ml 600 ml 9221 ml Output Total 1100 ml 1200 ml 5050 ml Balance 700 ml -600 ml 4171 ml Intake Oral 1800 ml 600 ml 5660 ml IV Total 3561 ml Output Urine Total 1100 ml 1200 ml 4550 ml Estimated Blood Loss 500 ml # Bowel Movements 0 0 General: Alert, Oriented X3, Mild Distress Head: Normal Eyes: PERRLA, EOMI, Scleral Anicteric Neck: Supple, No Thyromegaly Chest & Lungs: Clear to auscultation & percussion Cardiovascular: Regular Rate/Rhythm, Normal S1, Normal S2, No Murmurs/Rubs/ Gallops Abdomen: Non-tender, Non-distended, Obese, Other (hypoactive bowel sounds throughout, some palpable stool in LLQ) Musculoskeletal: Unremarkable, Normal Range of Motion Extremities: No cyanosis/clubbing/edma bilat (Dressed surgical incision on right hip) Neurological: Grossly Neurologically Intact, Cranial Nerves 2-12 Intact Lab and Diagnostics Labs Item Value Date Time Red Blood Count 2.81 mil/mm3 L 10/05/16 0500 Mean Corpuscular Hemoglobin 26.7 pg L 10/05/16 0500 Mean Corpuscular Hemoglobin Concent 31.3 % L 10/05/16 0500 Neutrophils (%) (Auto) 80.1 % H 10/05/16 0500 Lymphocytes (%) (Auto) 13.6 % L 10/05/16 0500 Estimat Glomerular Filtration Rate 96 mL/min 10/05/16 0500 Calcium Level 8.4 mg/dL L 10/05/16 0500 Result Diagram: 10/06/16 0505 10/05/16 0500 X-Rays, CTs and MRIs X-RAY ABDOMEN, ONE VIEW IMPRESSION: No acute process. Dictated by: Reanna Rae M.D. on 10/06/2016 at 20:16 Approved by: Reanna Rae M.D. on 10/06/2016 at 20:16 . Assessment & Plan Assessment Brigitte Nunez is a 56 year old woman s/p right hip total athroplasty for severe degenerative arthritis who manifested severe nausea and vomiting of a large volume of brackish fluid earlier today. There was an initial concern for SBO so an internal medicine consult was obtained, A/P film of the abdomen was negative for any acute intra-abdominal process. The patient has had fairly heavy usage of post operative opiate analgesia, and she reports that she has not had a bowel movement since 10/02/16 the day prior to her surgery. 1. Constipation likely secondary to opiate analgesia, not present on admission, acute. Active -Patient given a single dose of Mag Citrate -Will consider dulcolax suppository should this prove inadequate to induce BM -Should the patient have a BM and still experience nausea this may be due to adverse reaction to her opiate regimen, and a alternative regimen should be employed 2. Nausea and vomiting, not present on admission, acute. improved -Likely secondary to the above -Continue PRN Zofran -As above, should a BM not relieve her nausea consider altering analgesia regimen Thank you for allowing us to participate in the care of this delightful woman, should any further clarification or assistance be required feel free to contact the internal medicine team. Problems: (1) Constipation due to opioid therapy Status: Acute ICD Code: K59.03 Pain Evaluation: Adequate Pain Control VTE Prophylaxis: SCDs, JAZMÍN Hose, Other (aspirin 325 mg BID) VTE Mechanical Devices: Intermittant Pneumatic CD Resuscitation Status: CPR: Attempt Resuscitation Attending Statement The patient was seen and examined together with Dr. Rasheed on 10/06 and I agree with the history, exam and plan as outlined in the note above. copies to: Hari Jimenez David E DO October 06, 2016 20:43 Laith Monroe MD October 06, 2016 22:33
[2016-10-07] VITALS (7 sets, daily range): BP systolic 108–123; BP diastolic 71–80; PULSE 87–92; RESP 20–22; O2SAT 91–95
--- NOTE | 2016-10-07 02:16 | NUR ---
Nausea/Activity On initial assessment, Dr. Rasheed was in patients room discussing patients s/s of nausea vs small bowel obstruction. Abdominal xray was taken. Per patient, Dr. Rasheed advised patient that she did not have a small bowel obstruction. Patient was ordered Citrate of Magnesium. Patient took 1/4 of bottle and became nauseous. Dr. Rasheed informed. Patient was ordered Dulcolax PO and advanced to clears. Soda crackers ok with physician. Patient ambulated around hallway and requested to go back to bed. VSS. Call light within reach. Care continues.
[2016-10-07] MEDS: Pantoprazole 20 mg ER24 Tablet PO SCH (05:57)
[2016-10-07] MEDS: 0.9% Sodium Chloride 1,000 ML IV SCH ×2 (07:41→17:41)
[2016-10-07] MEDS: Sodium Chloride LOK Flush 10 mL Syringe IV SCH ×2 (08:11→16:30)
[2016-10-07] MEDS: lamoTRIgine 100 mg Tablet PO SCH (08:12)
[2016-10-07] MEDS: buPROPion SR 100 mg ER12 Tablet PO SCH (08:13)
[2016-10-07] MEDS: Senna-Docusate 8.6-50 mg Tablet PO SCH ×2 (08:14→20:25)
[2016-10-07] MEDS ORDERED: TRAM-14 PO (12:49)
--- NOTE | 2016-10-07 12:56 | PCM.PNORTH ---
Subjective Date of Service: October 07, 2016 Visit Information: Reason for Visit Right Hip Arthritis Surgery/Surgery Date RIGHT TOTAL HIP 10/03/16 Post-Op Day # 4 Date of Admission: October 03, 2016 at 14:46 Hospital Day # Subjective Patient had episode of foul-smelling vomiting last night. Hospitalist service was consulted regarding possible small bowel obstruction. Dr. Rasheed was gracious enough to see the patient last night. Abdominal x-ray did not reveal a bowel obstruction. Patient was administered suppository and subsequently had a bowel movement last night. She reports nausea has resolved. Her abdomen is feeling much better. She is hungry today. She feels a little weak overall. She denies feeling dizzy when up. Postop General: No Shortness of Breath, No Chest Pain, Good Appetite Pain Management: PO, IV Push Objective Exam Vital Signs and I/O Vital Sign - Last Date Time Temp Pulse Resp B/P Pulse Ox O2 Delivery O2 Flow Rate FiO2 10/07/16 03:05 36.8 92 20 114/71 93 Room Air 10/06/16 20:16 2.00 Intake and Output 10/06/16 10/06/16 10/07/16 Cumulative From/Thru 15:00 23:00 07:00 09/29/16 10:54 - 10/07/16 06:37 Intake Total 600 ml 1408 ml 27581 ml Output Total 400 ml 3 ml 5453 ml Balance 200 ml 1405 ml 5776 ml Intake Oral 600 ml 680 ml 6940 ml IV Total 728 ml 4289 ml Output Urine Total 100 ml 3 ml 4653 ml Emesis 300 ml 300 ml Estimated Blood Loss 500 ml # Voids 1 1 # Bowel Movements 0 1 1 Lab & Micro Results Laboratory Tests Test 10/07/16 04:55 Hemoglobin 7.0g/dL (12.0-15.6) Hematocrit 22.9% (35.0-46.0) Result Diagram: 10/07/16 4145 10/05/16 0500 SURGICAL WOUND : Dressing & Drainage Status: Intact (clean and dry) Activity: Activity per PT, Ambulate with PT Catheters: None Assessment & Plan Impression 1. POD #4 Right total hip arthroplasty 2. Postoperative anemia with tachycardia 3. Opioid-induced constipation 4. Postoperative nausea and vomiting Problems: Plan Nausea has resolved with Zofran. Narcotics have been discontinued. Patient is using tramadol for pain. The patient had bowel movement last night and she reports her abdomen is feeling much better. She denies feeling dizzy when up however she has been tachycardic, even at rest. She feels weak. Recommend transfusion of 1 unit packed red blood cells. After much discussion patient agrees to transfusion. Patient has already been typed and crossed. We appreciate the hospitalist service for medical management of this patient. Weightbearing: Weight bearing as tolerated with walker DVT prophylaxis: aspirin 325 mg twice a day 6 weeks Physical therapy for transfers, progressive ambulation, therapeutic exercise. Patient is performing very well with therapy Hip precaution positions to prevent dislocation: No flexing forward past 90, no crossing the legs at the knee, no active abduction for 6 weeks after surgery The patient may shower on Sunday if the wound has no drainage present. Wound may be uncovered to shower. Let soap and water run over the wound, pat dry and apply a new dressing. Wound care: change Island dressing every 2-3 days of sooner if needed Discharge plan: Discharge home today. Follow-up plan: In 2 weeks at [facility] with WILY for wound check and at [address] Jimenez with x-rays Pain Management: Tramadol, acetaminophen VTE Prophylaxis: SCDs, JAZMÍN Hose, Other (aspirin 325 mg BID) Resuscitation Status: CPR: Attempt Resuscitation Brenda Brown PA-C October 07, 2016 12:56 Brenda Brown PA-C October 07, 2016 12:56
[2016-10-07] MEDS ORDERED: 0.9% Sodium Chloride 250 ML ONE (14:33)
[2016-10-07] MEDS: Ondansetron 2 mg/mL 2 mL Inj IVPUSH PRN (15:47)
--- NOTE | 2016-10-07 18:00 | NUR ---
pt received 1 u RBCs today without any signs of reactions, however she did continue to have GI symptoms today started this afternoon, nausea and much belching, she did not vomit. Refused Zofran "that made me throw up the other day" Gave Simethicone 80mg
--- NOTE | 2016-10-07 22:37 | PCM.PNMED ---
Subjective Date of Service October 07, 2016 Subjective Patient is seen and examined. She states she is wanting to go home as her nausea and vomiting, constipation or much better after she had a large bowel movement overnight. She is concerned about her anemia and herbal however morning more information Exam Vital Signs Vital Sign - Last Date Time Temp Pulse Resp B/P Pulse Ox O2 Delivery O2 Flow Rate FiO2 10/07/16 20:45 36.9 91 20 123/78 95 Room Air 10/06/16 20:16 2.00 Intake and Output 10/06/16 10/06/16 10/07/16 Cumulative From/Thru 15:00 23:00 07:00 09/29/16 10:54 - 10/07/16 06:37 Intake Total 600 ml 1408 ml 02393 ml Output Total 400 ml 3 ml 5453 ml Balance 200 ml 1405 ml 5776 ml Intake Oral 600 ml 680 ml 6940 ml IV Total 728 ml 4289 ml Output Urine Total 100 ml 3 ml 4653 ml Emesis 300 ml 300 ml Estimated Blood Loss 500 ml # Voids 1 1 # Bowel Movements 0 1 1 Exam Gen.: Pale appearing pleasant white female HEENT: Normocephalic, atraumatic Heart: Mild systolic murmur is present regular rate and rhythm Lungs: Clear to auscultation bilaterally no crackles or wheezes Abdomen soft nondistended Extremities: Without edema patient is ambulating. Neuro: No focal deficits Psych: Negative for anxiety IVs and Medications IV Fluids Normal saline 100 mL per hour Medications Reviewed: Medications were reviewed in detail Lab and Diagnostics Result Diagram: 10/07/16201210/05/16 0500 Assessment & Plan Brigitte Nunez is a 56 year old woman s/p right hip total athroplasty for severe degenerative arthritis who manifested severe nausea and vomiting of a large volume of brackish fluid earlier today. There was an initial concern for SBO so an internal medicine consult was obtained, A/P film of the abdomen was negative for any acute intra-abdominal process. The patient has had fairly heavy usage of post operative opiate analgesia, and she reports that she has not had a bowel movement since 10/02/16 the day prior to her surgery. 1. Constipation likely secondary to opiate analgesia, not present on admission, acute. Resolved -Patient given a single dose of Mag Citrate -Will consider dulcolax suppository should this prove inadequate to induce BM -Resolved overnight 2. Nausea and vomiting, not present on admission, acute. improved -Likely secondary to the above -Continue PRN Zofran -Resolved after bowel movement overnight 3. Symptomatic anemia: Radha to blood loss due to inherent risks associated with orthopedic surgery: Patient is extensively counseled on the benefits of transfusion as well as the risks. She decided to accept a transfusion. -- Type and screen, crossmatch one year -- 1 unit of PRBC transfused -- Orthopedic surgery would like to wait to 10/08 for discharge Thank you for allowing us to participate in the care of this delightful woman, should any further clarification or assistance be required feel free to contact the internal medicine team. VTE Prophylaxis: SCDs, JAZMÍN Martini, Other (aspirin 325 mg BID) VTE Mechanical Devices: Intermittant Pneumatic CD Resuscitation Status: CPR: Attempt Resuscitation Time spent 20 minutes Marion Ellington DO October 07, 2016 22:37
[2016-10-07] MEDS: hydrOXYzine Pamoate 25 mg Capsule PO PRN (23:33)
[2016-10-08] MEDS: Sodium Chloride LOK Flush 10 mL Syringe IV SCH ×2 (00:39→08:11)
[2016-10-08] MEDS: 0.9% Sodium Chloride 1,000 ML IV SCH (03:18)
--- NOTE | 2016-10-08 03:49 | NUR ---
GI; no request for nausea rx. C/o gas pains. Encouraged to ambulate and sit up which pt did in room. Mylicon given. Medium soft bm per bathroom. Tylenol x1- pt appeared to sleep after midnight. Mom on cot in room.
[2016-10-08 04:45] VITALS: BP 111/76; PULSE 79; RESP 20; O2SAT 93
[2016-10-08] MEDS: hydrOXYzine Pamoate 25 mg Capsule PO PRN (05:52)
[2016-10-08] MEDS: Pantoprazole 20 mg ER24 Tablet PO SCH (08:11)
[2016-10-08 08:20] VITALS: BP 102/59; PULSE 77; RESP 16; O2SAT 97
[2016-10-08] MEDS: lamoTRIgine 100 mg Tablet PO SCH (09:20)
[2016-10-08] MEDS: Senna-Docusate 8.6-50 mg Tablet PO SCH (09:20)
[2016-10-08] MEDS: buPROPion SR 100 mg ER12 Tablet PO SCH (09:20)
--- NOTE | 2016-10-08 11:12 | PCM.PNORTH ---
Subjective Date of Service: October 08, 2016 Visit Information: Reason for Visit Right Hip Arthritis Surgery/Surgery Date RIGHT TOTAL HIP 10/03/16 Post-Op Day # 5 Date of Admission: October 03, 2016 at 14:46 Hospital Day # Subjective Patient reports nausea and constipation are resolved. She has a little upper abdominal gas. Her energy level is better today. Postop General: No Shortness of Breath, No Chest Pain, Good Appetite Pain Management: PO, IV Push Objective Exam Objective Patient is seen sitting up in a chair. She has pink color in her cheeks. She stand independently for dressing change. Vital Signs and I/O Vital Sign - Last Date Time Temp Pulse Resp B/P Pulse Ox O2 Delivery O2 Flow Rate FiO2 10/08/16 08:20 36.4 77 16 102/59 97 Room Air 10/06/16 20:16 2.00 Intake and Output 10/07/16 10/07/16 10/08/16 Cumulative From/Thru 15:00 23:00 07:00 09/29/16 10:54 - 10/08/16 06:57 Intake Total 970 ml 1200 ml 23037 ml Output Total 400 ml 400 ml 6253 ml Balance 570 ml 800 ml 7146 ml Intake Oral 520 ml 1200 ml 8660 ml IV Total 100 ml 4389 ml Packed Cells 350 ml 350 ml Output Urine Total 400 ml 400 ml 5453 ml Emesis 300 ml Estimated Blood Loss 500 ml # Voids 2 3 # Bowel Movements 0 1 2 Lab & Micro Results Laboratory Tests Test 10/07/16 20:13 10/08/16 05:14 10/08/16 10:05 Hemoglobin 9.2g/dL (12.0-15.6) 8.1g/dL (12.0-15.6) 8.9g/dL (12.0-15.6) Hematocrit 29.7% (35.0-46.0) 26.3% (35.0-46.0) 27.7% (35.0-46.0) Sodium Level 144mEq/L (134-144) Potassium Level 4.5mEq/L (3.5-5.2) Chloride Level 108mEq/L (97-108) Carbon Dioxide Level 25mmol/L (18-29) Blood Urea Nitrogen 13mg/dL (6-24) Creatinine 0.74mg/dL (0.57-1.00) Estimat Glomerular Filtration Rate 117mL/min (>59) Glucose Level 98mg/dL (60-99) Calcium Level 8.5mg/dL (8.5-10.1) Result Diagram: 10/08/16 1005 10/08/16 0514 General Appearance: Alert, Oriented X3, Cooperative, No Acute Distress Extremities: Distal Pulses Palpable, No Compartment Syndrom Noted, Thigh & Calf Soft/Nontender Postop Sensory Motor: Distal Motor Intact, NVI Distally SURGICAL WOUND : Incision General Appearance: Steri Strips, Well Approximated Dressing & Drainage Status: Changed, Dressing Removed, Minimal (drainage at distal end of wound, dried on the dressing), No Purulent Drainage, No Odor Activity: Activity per PT, Ambulate with PT Catheters: None Assessment & Plan Impression 1. POD #5 Right total hip arthroplasty 2. Postoperative anemia - improved 3. Opioid-induced constipation - resolved 4. Postoperative nausea and vomiting - resolved Problems: Plan We appreciate the hospitalist service for medical management of this patient. Patient reports her energy level is improved. She still has a little upper abdominal gas pain but denies nausea. She had BM yesterday. Patient was transfused 1 unit PRBC yesterday. Weightbearing: Weight bearing as tolerated with walker DVT prophylaxis: aspirin 325 mg twice a day 6 weeks Physical therapy for transfers, progressive ambulation, therapeutic exercise. Patient is performing very well with therapy Hip precaution positions to prevent dislocation: No flexing forward past 90, no crossing the legs at the knee, no active abduction for 6 weeks after surgery The patient may shower on Sunday if the wound has no drainage present. Wound may be uncovered to shower. Let soap and water run over the wound, pat dry and apply a new dressing. Wound care: Dressing is changed today. change Island dressing every 2-3 days or sooner if needed Discharge plan: Discharge home today. Follow-up plan: at 2 weeks post op at [facility] with WILY for wound check and at [address] Jimenez with x-rays Pain Management: Tylenol, tramadol VTE Prophylaxis: SCDs, JAZMÍN Hose, Other (aspirin 325 mg BID) Resuscitation Status: CPR: Attempt Resuscitation Brenda Brown PA-C October 08, 2016 11:12
[2016-10-08] MEDS ORDERED: FERR-83 PO (11:27)
[2016-10-08] MEDS ORDERED: POLY17PO6 PO (11:28)
--- NOTE | 2016-10-08 11:38 | PCM.PNMED ---
Subjective Date of Service October 08, 2016 Subjective Patient is seen and examined this a.m. She states she is still tired but wanting to go home. She is not nauseated, she has not had other work bowel movement since the last one, but she also has not taken any laxatives or medications for constipation since then. Tolerating normal diet. Her hemoglobin was repeated this a.m. and is stable. No other concerns Exam Vital Signs Vital Sign - Last Date Time Temp Pulse Resp B/P Pulse Ox O2 Delivery O2 Flow Rate FiO2 10/08/16 08:20 36.4 77 16 102/59 97 Room Air 10/06/16 20:16 2.00 Intake and Output 10/07/16 10/07/16 10/08/16 Cumulative From/Thru 15:00 23:00 07:00 09/29/16 10:54 - 10/08/16 06:57 Intake Total 970 ml 1200 ml 39986 ml Output Total 400 ml 400 ml 6253 ml Balance 570 ml 800 ml 7146 ml Intake Oral 520 ml 1200 ml 8660 ml IV Total 100 ml 4389 ml Packed Cells 350 ml 350 ml Output Urine Total 400 ml 400 ml 5453 ml Emesis 300 ml Estimated Blood Loss 500 ml # Voids 2 3 # Bowel Movements 0 1 2 Exam Gen.: No acute distress sitting in chair HEENT: Normocephalic, atraumatic Heart: Regular rate and rhythm no S3-S4 sounds Lungs: Clear to auscultation no crackles or wheezes Abdomen soft, obese, nondistended. Normal bowel sounds are auscultated Psych: Negative for agitation or anxiety Neuro no focal deficits Extremities negative for digital cyanosis Skin: Warm and dry IVs and Medications IV Fluids None Medications Reviewed: Medications were reviewed in detail Lab and Diagnostics Result Diagram: 10/08/16 1005 10/08/16 0514 Assessment & Plan Brigitte Nunez is a 56 year old woman s/p right hip total athroplasty for severe degenerative arthritis who manifested severe nausea and vomiting of a large volume of brackish fluid earlier today. There was an initial concern for SBO so an internal medicine consult was obtained, A/P film of the abdomen was negative for any acute intra-abdominal process. The patient has had fairly heavy usage of post operative opiate analgesia, and she reports that she has not had a bowel movement since 10/02/16 the day prior to her surgery. 1. Constipation likely secondary to opiate analgesia, not present on admission, acute. Resolved -Patient given a single dose of Mag Citrate -Will consider dulcolax suppository should this prove inadequate to induce BM -Resolved -- Patient is given a prescription for MiraLAX. She has Colace at home. Asked that she tries MiraLAX before Colace. 2. Nausea and vomiting, not present on admission, acute. improved -Likely secondary to the above -Continue PRN Zofran -Resolved after bowel movement 10/07 -- Patient was given scripts by orthopedics for Zofran 3. Symptomatic anemia: Radha to blood loss due to inherent risks associated with orthopedic surgery: Patient is extensively counseled on the benefits of transfusion as well as the risks. She decided to accept a transfusion. -- Type and screen, crossmatch one year -- 1 unit of PRBC transfused -- Orthopedic surgery would like to wait to 10/08 for discharge -- On therapeutic surgery has discharged the patient to home on 10/08. -- Repeat H&H prior to October [address] Garner, to be sent to his PA. -- Prescription for iron supplementation for one month is given to the patient. We request that PCP follows up on iron panel and further labs. Thank you for allowing us to participate in the care of this delightful woman, should any further clarification or assistance be required feel free to contact the internal medicine team. Pain Evaluation: Adequate Pain Control VTE Prophylaxis: SCDs, JAZMÍN Martini, Other (aspirin 325 mg BID) VTE Mechanical Devices: Intermittant Pneumatic CD Resuscitation Status: CPR: Attempt Resuscitation Time spent 15 minutes Marion Ellington DO October 08, 2016 11:38
--- NOTE | 2016-10-08 12:04 | NUR ---
DISCHARGE Tylenol PO has been adequate for patients pain control. Patient refused any other pain medication at this time. Tolerating liquids PO and her diet well. Denies nausea. No emesis noted. Denies SOB. Patient has been able to ambulate with SBA and the FWW and has been tolerating it well. Dressing was changed by PA this morning. Fidencio hose placed on. IV saline lock d/cd. Discharge instructions, care notes and prescription was given to the patient and she verbalized understanding. Per notes [facility] has been set-up for the patient and they will get a hold of her on Sunday. Discharged to home with her mother and all her personal belongings. (Copy of D/C is in the chart).
--- NOTE | 2016-10-08 12:14 | NUR ---
Social Work: Discharge Data: EMR reviewed. Pt is on day 5 of hospitalization for right hip arthritis. Pt had discharge orders entered but did not inform nursing staff she was leaving. RN told SW that pt was eager and ready to leave. MORALES contacted pt and left voicemail confirming that SW faxed discharge orders and F2F to [facility] for PT. Pt discharged home with mother Zari via POV. A: Pt who will benefit from HH for PT. P: Pt discharged home with mother via POV. MORALES faxed discharge orders and F2F to [facility] for HH services. EMANUEL Can
== END 2016-10-08 11:41 | disposition home health service (06) | DRG 470 ==
LOC: SAS 08:30 → OSC 14:46
PROVIDERS: ADMIT Orthopaedic Surgery; ATTEND Orthopaedic Surgery
PROC: 0SR904A Replacement of Right Hip Joint with Ceramic on Polyethylene Synthetic Substitute, Uncemented, Open Approach (ICD-10-PCS; principal; 2016-10-03 10:45)
PROC: 30233N1 Transfusion of Nonautologous Red Blood Cells into Peripheral Vein, Percutaneous Approach (ICD-10-PCS; 2016-10-07)
DX: M16.11 Unilateral primary osteoarthritis, right hip (principal); D64.9 Anemia, unspecified; K59.03 Drug induced constipation; T40.2X5A Adverse effect of other opioids, initial encounter; Y92.239 Unspecified place in hospital as the place of occurrence of the external cause; R11.2 Nausea with vomiting, unspecified; E03.9 Hypothyroidism, unspecified; F31.9 Bipolar disorder, unspecified; F41.9 Anxiety disorder, unspecified; R00.0 Tachycardia, unspecified